=== PATIENT | female | born 1975 | race Caucasian/White ===

== ENCOUNTER 2018-07-31 07:28 | Inpatient (IN) | payer MEDICARE ==
[2018-07-31] MEDS ORDERED: SCOPOLAMINE HYDROBROMIDE 1.5MG/72HR PATCH TD ONE ×3 (07:45→08:48)
[2018-07-31] MEDS ORDERED: FAMOTIDINE/PF 20 MG/2 ML VIAL ONE ×2 (07:45→08:48)
[2018-07-31] MEDS ORDERED: LACTATED RINGERS 1,000 ML IV ONE (07:45)
[2018-07-31] MEDS ORDERED: ENOXAPARIN SODIUM 40 MG/0.4 ML DISP.SYRIN SQ ONE (07:55)
[2018-07-31] MEDS ORDERED: ceFAZolin SODIUM 1 GM VIAL ONE (08:48)
[2018-07-31] MEDS ORDERED: ROCURONIUM BROMIDE 10 MG/ML 5ML VIAL ONE (08:48)
[2018-07-31] MEDS ORDERED: ACETAMINOPHEN 1,000 MG/100 ML INJ IV ONE (08:48)
[2018-07-31] MEDS ORDERED: DESFLURANE 240 ML LIQUID IH ONE (08:48)
[2018-07-31] MEDS ORDERED: MIDAZOLAM HCL 2 MG/2 ML VIAL ONE (08:48)
[2018-07-31] MEDS ORDERED: GLYCOPYRROLATE 0.2 MG/1 ML 1 ML ONE (08:48)
[2018-07-31] MEDS ORDERED: DEXAMETHASONE SOD PHOS 4 MG/ML VIAL ONE (08:48)
[2018-07-31] MEDS ORDERED: ONDANSETRON HCL/PF 4 MG/ 2ML VIAL ONE (08:48)
[2018-07-31] MEDS ORDERED: FENTANYL 250MCG/5ML VIAL ONE (08:48)
[2018-07-31] MEDS ORDERED: PROPOFOL 200 MG/20 ML VIAL IV ONE (08:48)
[2018-07-31] MEDS ORDERED: SUGAMMADEX 200 mg/2mL 200 MG/2 ML VIAL IV ONE (08:48)
[2018-07-31] MEDS ORDERED: LACTATED RINGERS 1,000 ML IV.SOLN IV ONE (08:48)
[2018-07-31] MEDS ORDERED: LIDOCAINE HCL/PF 2% 100 MG/5 ML VIAL IJ ONE (08:48)
[2018-07-31] MEDS ORDERED: fentaNYL CITRATE/PF 100 MCG/ 2ML AMP ONE ×2 (10:38→11:02)
[2018-07-31] MEDS ORDERED: KETOROLAC TROMETHAMINE 30 MG/1ML VIAL IVP PRN (11:28)
[2018-07-31] MEDS ORDERED: PROMETHAZINE HCL 25 MG in 0.9 % SODIUM CHLORIDE 50 ML IV PRN (11:28)
[2018-07-31] MEDS ORDERED: ONDANSETRON HCL/PF 4 MG/ 2ML VIAL IVP PRN (11:28)
[2018-07-31] MEDS ORDERED: diphenhydrAMINE HCL 50 MG/ML VIAL IVP PRN (11:28)
[2018-07-31] MEDS ORDERED: LEVALBUTEROL HCL 1.25 MG/3 ML AMPUL.NEB NEB PRN (11:28)
[2018-07-31] MEDS: MORPHINE SULFATE 4 MG/ML PREFILLED SYR IVP PRN ×2 (11:59→23:45)
[2018-07-31] MEDS ORDERED: PROMETHAZINE HCL 25 MG/ML VIAL ONE (12:04)
[2018-07-31] MEDS ORDERED: 0.9 % SODIUM CHLORIDE 50 ML IV ONE ×2 (12:05→20:20)
[2018-07-31] MEDS: CEFAZOLIN SODIUM/DEXTROSE,ISO 1 GM/50 ML PIGGYBACK IV SCH ×2 (16:51→21:24)
[2018-07-31] MEDS: 0.9 % SODIUM CHLORIDE 1,000 ML IV SCH ×2 (16:52→20:16)
[2018-07-31] MEDS: LORazepam 0.5 MG TABLET PO PRN (17:19)
[2018-07-31] MEDS ORDERED: ceFAZolin SODIUM 1 GM VIAL IV SCH (18:00)
--- NOTE | 2018-07-31 18:16 | History and Physical Report ---
History of Present Illnes - History of Present Illness Reason for Visit: S/P Gastric Sleeve History of Present Illness: Patient admitted today for sleeve gastrectomy. Procedure went well and patient did well. She will be admitted for IVF, IV pain control, and advance diet as tolerated. We will use SCDs and lovenox to prevent DVTs and IS to prevent respiratory infections. Patient will be up and ambulatory. - Past Medical History Cardiac: HTN. denies: AFIB Pulmonary: denies: Asthma, COPD, Previously intubated PUMP OPERATOR: Migraine Gastrointestinal: denies: GERD, Inflam bowel disease Heme/Onc: denies: Anemia NOS, Cancer Hepatobiliary: denies: Cholelithiasis, Hep A/B/C Psych: Anxiety, Depression Musculoskeletal: Chronic low back pain Rheumatologic: denies: Fibromyalgia Infectious Disease: denies: HIV ENT: denies: Sinusitis Renal/: denies: Acute renal failure Endocrine: Hypothyroidism. denies: Diabetes Dermatology: denies: Cellulitis Grav: 2 Para: 2 - Past Surgical History Past Surgical History: Other (breast reduction, foot surgery, partial thyroidectomy) - Past Family History Father Family History: CAD, DM, Hypertension, Other (pacemaker, stents, bypass) Mother Family History: None (Mother wont go to hospital) - Past Social History Smoke: 1 pack per day, Quit (08/2017) Alcohol: None Drugs: None Lives: With Family - Health Maintenance Health Maintenance: Tetanus, Influenza Vaccine Influenza Vaccine: Current for this Influenza Season Pneumonia Vaccine: No Resuscitation Status: Resusciation Status Resuscitation Status Full Code - Unable to Obtain History Unable to Obtain: No Review of Systems - Review of Systems Constitutional: negative: Fever, Chills Eyes: negative: pain, vision change ENT: negative: Ear Pain, Ear Discharge, Throat Pain Respiratory: negative: Cough, Shortness of Breath Cardiovascular: negative: Chest Pain, Palpitations Gastrointestinal: Nausea, Abdominal Pain (s/p gastric sleeve). negative: Vomiting Genitourinary: negative: Dysuria Musculoskeletal: Back Pain. negative: Neck Pain, Shoulder Pain Skin: negative: Rash Neurological: negative: Confusion, Seizures - Medications/Allergies Allergies/Adverse Reactions: Allergies Allergy/AdvReac Type Severity Reaction Status Date / Time erythromycin base Allergy Verified 07/31/18 11:36 Sulfa (Sulfonamide Allergy Verified 07/31/18 11:36 Antibiotics) Home Medications: Home Medications Cyclobenzaprine HCl [Flexeril] 10 mg PO TID PRN 07/31/18 Doxycycline Hyclate [Vibramycin] 100 mg PO BID 07/31/18 Hydrocodone/Acetaminophen [Hydrocodone-Acetamin 7.5-325] 1 - 2 tab PO DAILY PRN 07/31/18 Ibuprofen [Ibu] 800 mg PO TID 07/31/18 LORazepam [Ativan] 0.5 mg PO TID PRN 07/31/18 Lansoprazole [Prevacid] 30 mg PO DAILY 07/31/18 Levonorgestrel-Ethin Estradiol [Introvale 0.15-0.03 mg Tablet] 1 tab PO DAILY 07/31/18 Nebivolol HCl [Bystolic] 20 mg PO DAILY 07/31/18 Thyroid,Pork [[place] Thyroid] 45 mg PO DAILY 07/31/18 diphenhydrAMINE HCL [Benadryl] 25 mg PO Q6 PRN 07/31/18 Current Inpatient Medications: Current Inpatient Medications Cefazolin Sodium/Dextrose (Cefazolin 1 G/50 Ml-Dextrose) 1 gm IV Q8H [facility] Last Admin: 07/31/18 16:51 Dose: 1 gm Diphenhydramine HCl (Benadryl) 25 mg IVP Q6H PRN PRN Reason: Sleeping and Itching Stop: 08/04/18 11:27 Enoxaparin Sodium (Lovenox) 40 mg SQ QD [facility] Stop: 08/15/18 11:59 Famotidine (Pepcid) 20 mg IVP BID [facility] Stop: 08/04/18 20:59 Sodium Chloride (Normal Saline) 1,000 mls @ 150 mls/hr IV Q8H [facility] Last Admin: 07/31/18 16:52 Dose: 150 mls/hr Promethazine HCl 25 mg/ Sodium (Chloride) 51 mls @ 200 mls/hr IV Q6 PRN PRN Reason: Nausea / Vomiting Stop: 08/04/18 11:27 Last Admin: 07/31/18 12:06 Dose: 600 mls/hr Ketorolac Tromethamine (Toradol) 30 mg IVP Q6 PRN PRN Reason: For Mild Pain Stop: 08/04/18 11:27 Levalbuterol HCl (Xopenex) 1.25 mg NEB Q4 PRN PRN Reason: SOA, Dyspnea, or Wheezing Stop: 08/04/18 11:27 Lorazepam (Ativan) 0.5 mg PO TID PRN PRN Reason: Anxiety Last Admin: 07/31/18 17:19 Dose: 0.5 mg Miscellaneous (Patient Own Med) 1 each PO 0700 LUIGI Morphine Sulfate () 4 mg IVP Q2 PRN PRN Reason: Severe Pain Stop: 08/04/18 11:27 Last Admin: 07/31/18 11:59 Dose: 4 mg Ondansetron HCl (Zofran 4 Mg/2 Ml) 4 mg IVP Q6H PRN PRN Reason: Nausea / Vomiting Stop: 08/04/18 11:27 Exam - Exam Vital Signs: Vital Signs (72 hours) 07/31/18 07/31/18 07/31/18 11:27 11:28 12:04 Temperature 98.4 F 96.8 F L Pulse Rate [ 77 Left] Pulse Rate [ 76 Pulse ox] Respiratory 20 22 Rate Blood Pressure 122/64 155/79 [Left Arm] O2 Sat by Pulse 96 96 97 Oximetry 07/31/18 07/31/18 12:43 15:28 Temperature 98.4 F Pulse Rate [ 97 H Left] Pulse Rate [ Pulse ox] Respiratory 20 Rate Blood Pressure 122/64 [Left Arm] O2 Sat by Pulse 96 96 Oximetry General: Alert, Oriented to Person, Oriented to Place, Oriented to Time, Cooperative, Moderate distress HEENT: Atraumatic, PERRLA, Mouth Mucous membr. moist/[place], Nose Mucous membr. moist/[place] Neck: Normal Range of Motion. No: Stridor Lungs: Clear to auscultation, Normal air movement, Speaks full Sentences. No: Wheezes, Rales Cardiovascular: Regular rate, Normal S1, Normal S2, No murmurs Abdomen: Soft, Decreased Bowel Sounds. No: No tenderness Integumentary: Normal, [place], Warm, Dry Extremities: Normal pulses, No tenderness/swelling Neurological: Normal gait, Normal speech, Strength Equal Bilat, Sensation intact Psych/Mental Status: Mental status NL, Intact Judgment Assessment/Plan - Assessment/Plan (1) S/P gastric surgery Status: Acute Current Visit: Yes Plan: Plan for IVF for hydration, IV pain management for 24 hours then transition to oral, Lovenox and SCDs for DVT prevention, will advance diet per gastric protocol, and IV Pepcid BID. (2) Hypertension Status: Acute Current Visit: Yes Qualifiers: Hypertension type: essential hypertension Qualified Code(s): I10 - Essential (primary) hypertension Plan: Will hold bystolic during hospitalization and monitor blood pressure closely. (3) Hypothyroidism Status: Acute Current Visit: Yes Qualifiers: Hypothyroidism type: other Qualified Code(s): E03.8 - Other specified hypothyroidism Plan: Will continue home medication (4) Anxiety and depression Status: Acute Current Visit: Yes Plan: Will continue with Lorazepam as prescribed at home (5) Migraines Status: Acute Current Visit: Yes VTE Assessment - RISK FACTOR SCORE VTE RISK FACTOR SCORES: AGE 40-60 YEARS, MAJOR SURGERY/ANESTHESIA TIME > 1 HOUR (SCDs, frequent ambulation, Lovenox)
[2018-07-31] MEDS ORDERED: FAMOTIDINE/PF 20 MG/2 ML VIAL IVP SCH (21:00)
[2018-08-01 02:30] VITALS: BMI 42.9
[2018-08-01] MEDS: LORazepam 0.5 MG TABLET PO PRN ×2 (02:45→12:53)
[2018-08-01] MEDS ORDERED: HYDROmorphone HCL 2 MG TABLET PO ONE (05:07)
[2018-08-01] MEDS: 0.9 % SODIUM CHLORIDE 1,000 ML IV SCH (05:14)
[2018-08-01] MEDS: PATIENT OWN MED 1 EACH EACH PO SCH (05:35)
[2018-08-01] MEDS: ONDANSETRON HCL 4 MG TAB.RAPDIS PO PRN ×2 (05:36→14:56)
--- NOTE | 2018-08-01 06:55 | Diagnostic Imaging Report ---
HAWA FARRAR [facility] [id number] [facility] [address] [address] Report Submission Date: Aug 01, 2018 4:25:47 AM TEAM PSYCHOLOGIST Patient Study Name: GILLIAN BUTLER Date: Aug 01, 2018 3:34:34 AM TEAM PSYCHOLOGIST Modality Type: CT\SR Gender: F Description: CT ABD PELVIS W W/ : 77 Institution: [facility] Physician: HAWA FARRAR CT abdomen and pelvis without contrast History: Abdominal distention Technique: Images through the abdomen and pelvis were obtained without contrast. Findings: The lung bases, liver, gallbladder, spleen, pancreas, kidneys and adrenal glands are normal. There are postoperative changes in the stomach, consistent with gastroplasty. There is no hydronephrosis, hydroureter or renal calculus. There is no free air or fluid. There is no bowel obstruction. The appendix is normal. The uterus is grossly normal. Small amount of air is noted in the subcutaneous fat of the anterior abdominal wall, consistent with recent laparoscopy. Impression: Postoperative changes consistent with recent gastroplasty. No significant abnormality. Electronically signed on Aug 01, 2018 4:25:47 AM TEAM PSYCHOLOGIST by: Jd FOSTER
[2018-08-01] MEDS ORDERED: KETOROLAC TROMETHAMINE 30 MG/1ML VIAL IM PRN (07:29)
[2018-08-01] MEDS ORDERED: MORPHINE SULFATE 4 MG/ML PREFILLED SYR IM PRN (07:31)
[2018-08-01] MEDS ORDERED: PROMETHAZINE HCL 25 MG/ML VIAL IM PRN (07:31)
--- NOTE | 2018-08-01 09:29 | Inpatient Progress Note ---
Subjective - Required Recertification Statement I anticipate X number of days because-include discharge plan: 1 - Review of Systems Events since last encounter: Patient had a difficult time last night with increasing abdominal pain- she tried walking without relief- started experiencing some nausea- nursing state that abdomen felt firm, distended and tender to the touch. train caller provider was notified and labs and abdominal CT were completed. CT showed gas and patient increased her walking. IV was lost during CT with some infiltration to the site- no redness (moderate swelling)- multiple attempts to start IV and was unsuccessful. After seeing patient this morning she is doing much better- nausea has approved and abdominal pain has improved. She has been up and ambulating in the hallway. She is still tolerating sips of water. Meds have been changed to oral and IM. General: Denies: Chills, Night Sweats HEENT: Denies: Head Aches, Visual Changes Pulmonary: Denies: Dyspnea, Cough Cardiovascular: Edema. Denies: Chest Pain, Palpitations Gastrointestinal: Nausea, Vomiting, Abdominal Pain Genitourinary: Denies: Dysuria Musculoskeletal: Denies: Neck Pain, Shoulder Pain, Back Pain Neurological: Denies: Incoordination, Confusion Objective - Exam Vitals and I&O: Vital Signs Temp 100.2 F H 08/01/18 06:00 Pulse 81 08/01/18 06:00 Resp 16 08/01/18 06:00 BP 102/61 08/01/18 06:00 Pulse Ox 100 08/01/18 06:00 Intake & Output 07/31/18 07/31/18 08/01/18 11:59 23:59 11:59 Intake Total 1230 520 Output Total 200 1999 Balance 1030 -1480 Weight 113.398 kg Intake: IV 1200 420 Left Antecubital 20 right forarm 1200 400 Oral 30 100 Output: Urine 200 2000 Other: Voiding Method Toilet Toilet Toilet # Voids 1 3 2 # Bowel Movements 0 0 0 General: Alert, Oriented to Person, Oriented to Place, Oriented to Time, Cooperative, No acute distress HEENT: Atraumatic, PERRLA, EOMI, Mouth Mucous membr. moist/[place], Nose Mucous membr. moist/[place] Neck: Supple, +2 carotid pulse wo bruit Lungs: Clear to auscultation, Normal air movement, Speaks full Sentences Cardiovascular: Regular rate, Normal S1, Normal S2, No murmurs Abdomen: Normal bowel sounds, Soft. No: Distended, Rigid Extremities: No cyanosis, Normal pulses, Other (pt has moderate swelling to left upper arm (IV infiltrated)) Skin: Normal, [place], Warm, Dry Neurological: Normal gait, Normal speech, Strength Equal Bilat, Sensation intact Psych/Mental Status: Mental status NL, Mood NL, Appropriate Affect Other physical findings: Abdomen is soft, mildly tender, + bowel sounds throughout- pt feeling better Assessment/Plan - Assessment/Plan (1) S/P gastric surgery Status: Acute Current Visit: Yes Plan: We will leave IV out- pt is tolerating liquids, pain is controlled with oral and IM medications. (2) Hypertension Status: Acute Current Visit: Yes Qualifiers: Hypertension type: essential hypertension Qualified Code(s): I10 - Essential (primary) hypertension Assessment: Controlled at this time Plan: Will continue to hold blood pressure medication and continue to monitor (3) Hypothyroidism Status: Acute Current Visit: Yes Qualifiers: Hypothyroidism type: other Qualified Code(s): E03.8 - Other specified hypothyroidism (4) Anxiety and depression Status: Acute Current Visit: Yes Assessment: Continuing with home meds- controlled- will continue to monitor (5) Migraines Status: Acute Current Visit: Yes
[2018-08-01] MEDS: HYDROCODONE/ACETAMINOPHEN 15 ML SOLUTION PO PRN ×4 (09:50→21:30)
[2018-08-01] MEDS ORDERED: MAG HYDROX/ALUMINUM HYD/SIMETH 30 ML UDC PO ONE (10:39)
[2018-08-01] MEDS ORDERED: ENOXAPARIN SODIUM 40 MG/0.4 ML DISP.SYRIN SQ SCH (12:00)
[2018-08-01 14:13] LABS: eGFR (Non-African) > 60
[2018-08-01 14:14] LABS: BASOPHILS % 0.2 (0.0-1.5); EOSINOPHILS % 0.9 % (0.0-6.8); MEAN CORPUSCULAR HEMOGLOBIN 30.6 pg (28.0-34.0); NEUTROPHILS # 8.5 # k/uL (1.4-7.7)
[2018-08-01] MEDS: FAMOTIDINE 20 MG TABLET PO SCH (17:40)
[2018-08-02] MEDS: HYDROCODONE/ACETAMINOPHEN 15 ML SOLUTION PO PRN ×3 (00:07→11:19)
[2018-08-02] MEDS: ONDANSETRON HCL 4 MG TAB.RAPDIS PO PRN ×2 (05:30→11:19)
[2018-08-02] MEDS: FAMOTIDINE 20 MG TABLET PO SCH (07:29)
[2018-08-02] MEDS: PATIENT OWN MED 1 EACH EACH PO SCH (07:29)
[2018-08-02 09:24] VITALS: BP 105/52
--- NOTE | 2018-08-02 10:11 | Discharge Summary ---
Discharge Summary - Discharge Sumary History of Present Illness: Patient admitted today for sleeve gastrectomy. Procedure went well and patient did well. She will be admitted for IVF, IV pain control, and advance diet as tolerated. We will use SCDs and lovenox to prevent DVTs and IS to prevent respiratory infections. Patient will be up and ambulatory. Condition at Discharge: Stable Home Medications: Ambulatory Orders Medication Instructions Recorded Cyclobenzaprine HCl [Flexeril] 10 mg PO TID PRN 07/31/18 Doxycycline Hyclate [Vibramycin] 100 mg PO BID 07/31/18 Hydrocodone/Acetaminophen 1 - 2 tab PO DAILY PRN 07/31/18 [Hydrocodone-Acetamin 7.5-325] Ibuprofen [Ibu] 800 mg PO TID 07/31/18 LORazepam [Ativan] 0.5 mg PO TID PRN 07/31/18 Lansoprazole [Prevacid] 30 mg PO DAILY 07/31/18 Levonorgestrel-Ethin Estradiol 1 tab PO DAILY 07/31/18 [Introvale 0.15-0.03 mg Tablet] Nebivolol HCl [Bystolic] 20 mg PO DAILY 07/31/18 Thyroid,Pork [[place] Thyroid] 45 mg PO DAILY 07/31/18 diphenhydrAMINE HCL [Benadryl] 25 mg PO Q6 PRN 07/31/18 Hydrocodone/Acetaminophen 10 ml PO Q6H PRN #250 solution 08/02/18 [Hydrocodone-Acetamn 7.5-325/15] Promethazine HCl [Phenergan] 12.5 mg PO Q6H PRN #250 ml 08/02/18 Consultations this Visit: Other (Keep follow up appt s/p surgery) Procedures this Visit: Other (S/P Gastric Sleeve) Allergies/Adverse Reactions: Allergies Allergy/AdvReac Type Severity Reaction Status Date / Time erythromycin base Allergy Verified 07/31/18 11:36 Sulfa (Sulfonamide Allergy Verified 07/31/18 11:36 Antibiotics) Patient Problems: Current Active Problems Problem Status Onset Anxiety and depression Acute Hypertension Acute Hypothyroidism Acute Migraines Acute S/P gastric surgery Acute Discharge Summary: Patient was started on routine postoperative care. Patient did have some mild nausea. Patient did respond to antiemetics.Patient required a lot of motivation and persuasion to get up and ambulate and use incentive spirometer. On the first night s/p surgery patient had an episode where she told nursing that she was having extreme abdominal pain. The on-call provider was notified of abdomen being firm and distended. Labs and abdominal CT were completed and negative. Patient was encouraged to ambulate frequently (lots of encouragement) and symptoms improved. Patient did very well on night 2. She was able to tolerate oral medications and strict gastric diet. Staff state that patient had been ambulating multiple times independently. We were able to hold patients blood pressure medication s/p surgery. Patient instructed to monitor blood pressures- keep journal and take to follow up appointment. Patient has family support at home. She feels comfortable with discharge instructions- she states that everything was gone over thoroughly prior to surgery. Patient otherwise has done well. Patient other chronic medical problems remain stable. Hospital Course: Patient did well, she received IVFs, IV pain meds (did well transitioning to oral), she did well with strict gastric diet, patient was up ambulating in the halls frequently and independently (SCDs on while in bed), and patient using incentive spirometer. Blood pressure medications were held during hospitalization- remain WNL. Physical assessment has been WNL, abdomen soft, bowel sounds present, mild tenderness, post op sites without redness. - Final Diagnosis (1) S/P gastric surgery Problems: Incision sites are without redness, dressings are dry and intact, patient ambulating frequently and independently, using incentive spirometer and following strict gastric diet Right or Left: Right (2) Hypertension Problems: Held blood pressure meds during hospitalization- Blood pressures have been WNL Patient will keep journal of blood pressures and take to appointment Right or Left: Right (3) Hypothyroidism Problems: Stable on home medication Right or Left: Right (4) Anxiety and depression Problems: Stable on home medication Right or Left: Right (5) Migraines Problems: Stable on home medications Right or Left: Right
== END 2018-08-02 13:35 | disposition home or self-care (01) | DRG 621 ==
LOC: OPSURG 07:28 → SOUTH 11:15
PROVIDERS: ADMIT Nurse Practitioner Family; ATTEND Nurse Practitioner Family
DX: E66.01 Morbid (severe) obesity due to excess calories (principal)
CPT/HCPCS: 43235; 74178; 80048; 81025; 85025; 85610; 99231; 99232; 99238; J0690; J1100; J1650; J1885; J2001; J2250; J2270; J2405; J2550; J2704; J3010; J3490; Q9967; S0028; 43775; A9270; A9270-GY; J7030; J7120; S1016